=== PATIENT | female | born 1980 ===

== ENCOUNTER → 2018-02-28 | Outpatient (CLI) | payer OTHER ==
--- NOTE | 2018-02-28 16:58 | RADIOLOGY IMAGING REPORT ---
FACILITY: [facility] PATIENT NAME: Elena Maurer : 1980 MR: [id number] V: [id number] EXAM DATE: ORDERING PHYSICIAN: JL DAY TECHNOLOGIST: Location: [facility] [place] Patient: Elena Maurer : 1980 Visit/Account:[id number] Date of Sevice: 02/28/2018 Exam type: CHEST PA AND LAT History: Cough since Wednesday Comparison: None. Findings: There is a left perihilar infiltrate extending into the left lower lobe. No evidence of pleural effu sions. The cardiac swelling is normal IMPRESSION: 1. Left perihilar infiltrate extending into the left lower lobe likely representing acute pneumonia. Follow-up chest recommended to assure clearing Report Dictated By: Letty Garcia MD at 02/28/2018 4:53 PM Report E-Signed By: Letty Garcia MD at 02/28/2018 4:54 PM WSN:[email or web address]
== END ==
LOC: RAD 15:42
PROVIDERS: ATTEND Family Medicine
DX: R91.8 Other nonspecific abnormal finding of lung field (principal)
CPT/HCPCS: 71046

== ENCOUNTER → 2018-03-01 | Outpatient (CLI) | payer OTHER ==
[2018-03-01 11:54] LABS: PLATELET COUNT, AUTOMATED 253 K/uL (150-450)
== END ==
PROVIDERS: ATTEND Nurse Practitioner Family
DX: J18.9 Pneumonia, unspecified organism (principal)
CPT/HCPCS: 82040; 82247; 82310; 82374; 82435; 82565; 82947; 83605; 84075; 84132; 84155; 84295; 84450; 84460; 84520; 85025